=== PATIENT | female | born 1945 | race Caucasian/White ===

== ENCOUNTER 2021-01-18 11:24 | Emergency (ER) | payer MEDICARE ==
[~2021-01-18] VITALS: Ht 157.5 cm; Wt 61.2 kg
[2021-01-18] MEDS ORDERED: SODIUM CHLORIDE 0.9% 500ML 500 ML IV ONE (12:00)
[2021-01-18 12:37] LABS: BASOPHILS % 0.3 % (0.0-1.0); EOSINOPHILS % 0.3 % (0.0-6.0); HEMATOCRIT 39.2 % (34.2-44.1); HEMOGLOBIN 12.8 g/dL (12.0-16.0); LYMPHOCYTES # (AUTO) 1.3 (1.0-3.2); MEAN CORPUSCULAR HEMOGLOBIN 30.5 pg (28-32); MEAN CORPUSCULAR HGB CONC 32.7 g/dL (31-35); MEAN CORPUSCULAR VOLUME 93.3 fL (81-99); MONOCYTES # (AUTO) 0.4 (0.2-0.8); MONOCYTES % 5.5 % (4.4-11.3); NEUTROPHILS # (AUTO) 5.7 (2.1-6.9); NEUTROPHILS % 76.6 % (38.7-80.0); PLATELET COUNT 451 x10e3/uL (140-360); RED CELL DISTRIBUTION WIDTH 12.4 % (11.7-14.4)
[2021-01-18] MEDS ORDERED: ZYRTEC-D TABLE1 EACH (12:39)
[2021-01-18] MEDS ORDERED: XELJANZ XR11 MG (12:39)
[2021-01-18] MEDS ORDERED: FLONASE ALLERG9.9 ML INH (12:39)
[2021-01-18] MEDS ORDERED: CALTRATE 600 +1 EAC1 (12:39)
[2021-01-18] MEDS ORDERED: LATANOPROST2.5 ML OP (12:39)
[2021-01-18] MEDS ORDERED: ALENDRONATE SOD70 MG (12:39)
[2021-01-18] MEDS ORDERED: VENTOLIN HFA18 GM INH (12:39)
[2021-01-18] MEDS ORDERED: ADVAIR 250-501 EACH INH (12:39)
[2021-01-18] MEDS ORDERED: ATORVASTATIN CA40 MG PO (12:39)
[2021-01-18 12:40] LABS: INR 1.02
[2021-01-18 12:50] LABS: ALANINE AMINOTRANSFERASE 9 IU/L (0-55); ALBUMIN 4.2 g/dL (3.5-5.0); ALBUMIN/GLOBULIN RATIO 1.2 (0.8-2.0); ALKALINE PHOSPHATASE 68 IU/L (40-150); ANION GAP 15.1 mmol/L (8-16); BLOOD UREA NITROGEN 15 mg/dL (7-26); BUN/CREATININE RATIO 18 (6-25); CALCIUM 9.3 mg/dL (8.4-10.2); CARBON DIOXIDE 26 mmol/L (22-29); CHLORIDE 104 mmol/L (98-107); CREATINE KINASE 186 IU/L (29-168); CREATININE, SERUM 0.83 mg/dL (0.57-1.11); EST GLOMERULAR FILTRATION RATE > 60 ML/MIN (60-); GLUCOSE 105 mg/dL (74-118); POTASSIUM 4.1 mmol/L (3.5-5.1); SODIUM 141 mmol/L (136-145)
[2021-01-18 14:19] VITALS: BP 124/71
== END 2021-01-18 15:15 | disposition other institution (70) ==
LOC: ER 11:32
DX: S06.6X0A Traumatic subarachnoid hemorrhage without loss of consciousness, initial encounter (principal); R11.0 Nausea; R55 Syncope and collapse; W18.39XA Other fall on same level, initial encounter; W01.0XXA Fall on same level from slipping, tripping and stumbling without subsequent striking against object, initial encounter; Y92.008 Other place in unspecified non-institutional (private) residence as the place of occurrence of the external cause; J44.9 Chronic obstructive pulmonary disease, unspecified; E78.5 Hyperlipidemia, unspecified; J45.909 Unspecified asthma, uncomplicated; F17.210 Nicotine dependence, cigarettes, uncomplicated
CPT/HCPCS: 36415; 70450; 71045; 72125; 80053; 82550; 82553; 83735; 84484; 85025; 85610; 85730; 93005; 99284; J7040